=== PATIENT | male | born 1950 | race Hispanic/Latino ===

== ENCOUNTER 2022-08-20 07:15 | Day surgery (SDC) | payer OTHER, MEDICARE ==
[2022-08-14 12:54] VITALS: BP 111/59
[2022-08-14 13:06] LABS: BASOPHILS % (AUTO) 0.5 % (0.0-5.0); EOSINOPHILS % (AUTO) 2.7 % (0.0-8.0); HEMATOCRIT 36.7 % (42-54); MEAN CORPUSCULAR HEMOGLOBIN 23.8 pg (27.0-33.0); MEAN CORPUSCULAR VOLUME 79.4 fL (79-99); MONOCYTES % (AUTO) 6.4 % (3.0-13.0); PLATELET COUNT (AUTO) 233 K/uL (130-400); RED BLOOD CELL COUNT(AUTO) 4.62 MIL/uL (4.50-6.20); RED CELL DISTRIBUTION WIDTH 16.5 % (11.0-15.5); WHITE BLOOD COUNT (AUTO) 10.6 K/uL (4.8-10.8)
[2022-08-14 13:18] LABS: INR 1.08 (0.85-1.15); PROTHROMBIN TIME 11.7 SEC (9.6-11.6)
[2022-08-14 13:19] LABS: PARTIAL THROMBOPLASTIN TIME 28.9 SEC (26.3-35.5)
[2022-08-14 13:20] LABS: CREATININE 0.7 mg/dL (0.5-1.5); POTASSIUM 3.6 mmol/L (3.5-5.1)
[2022-08-14 13:59] LABS: APPEARANCE,URINE CLOUDY (CLEAR); BILIRUBIN,URINE NEGATIVE (NEGATIVE); COLOR,URINE LIGHT-YELLOW (YELLOW); GLUCOSE, URINE (UA) NEGATIVE (NEGATIVE); KETONES,URINE NEGATIVE (NEGATIVE); LEUKOCYTE ESTERASE ,URINE 500 Leu/uL (NEGATIVE); NITRATE,URINE NEGATIVE (NEGATIVE); PROTEIN,URINE 50 mg/dL (NEGATIVE); UROBILINOGEN,URINE 0.2 mg/dL (0.2-1.0)
[2022-08-14 14:10] LABS: BACTERIA,URINE FEW /HPF (None Seen); CALCIUM OXALATE CRYSTALS,UR RARE /LPF (None Seen); MUCUS,URINE RARE LPF (None Seen); WBC,URINE >100 /HPF (0-1); YEAST,URINE BUDDING MANY /HPF (None Seen)
[~2022-08-20] VITALS: Ht 182.9 cm; Wt 65.8 kg
[2022-08-20] VITALS (18 sets, daily range): BP systolic 94–116; BP diastolic 50–69
[~2022-08-20 07:15] MED LIST: ATORVASTATIN PO; ENAL-87 PO; GABA300C PO; INSLAN SQ; METF-446 PO
[2022-08-20] MEDS ORDERED: 0.9%NACL 1000ML 1,000 ML IV ONE (07:54)
[2022-08-20] MEDS: CEFAZOLIN SODIUM 2 GM VIAL ONE ×2 (08:03→09:37)
[2022-08-20] MEDS ORDERED: BUPIVACAINE/PF 0.25% 10ML VIAL IJ ONE (09:33)
[2022-08-20] MEDS ORDERED: ROCURONIUM 10MG/1ML SYR 10 MG/ML ML ONE (09:40)
[2022-08-20] MEDS ORDERED: PROPOFOL 10 MG/ML 20ML VIAL IV ONE (09:40)
[2022-08-20] MEDS ORDERED: BACITRACIN 28.4 GM OINT TP ONE (09:58)
[2022-08-20] MEDS ORDERED: ALBUMIN (HUMAN) 5% 250 ML IV ONE (10:17)
[2022-08-20] MEDS ORDERED: GLYCOPYRROLATE 1 MG/5 ML SYRINGE ONE (10:21)
[2022-08-20] MEDS ORDERED: NEOSTIGMINE 5MG/5ML SYR IV ONE (10:24)
== END 2022-08-20 12:28 | disposition home or self-care (01) ==
LOC: DAH 07:15
PROVIDERS: ATTEND Urology
DX: N47.1 Phimosis (principal); Z20.822 Contact with and (suspected) exposure to COVID-19; R33.8 Other retention of urine; E11.9 Type 2 diabetes mellitus without complications; Z86.73 Personal history of transient ischemic attack (TIA), and cerebral infarction without residual deficits; Z79.01 Long term (current) use of anticoagulants; Z79.899 Other long term (current) drug therapy
CPT/HCPCS: 80048; 85025; 85610; 85730; 87077; 87088; 87186; 87426; 81001; 36415; 71045; 93005; 54161; 82948 ×2; A4663; A4606; P9045; J3490 ×2; J2710; J7030; J2704; J0690; A4215; A4223; A4222; A4221; A4600

== ENCOUNTER 2023-09-01 11:47 | Emergency (ER) | payer OTHER, MEDICARE ==
[~2023-09-01] VITALS: Ht 170.2 cm; Wt 68.0 kg
[~2023-09-01 11:47] MED LIST changes: +AEC81 PO; +ATOR40TA71 PO; -ATORVASTATIN PO; -INSLAN SQ; +LACT PO
[2023-09-01 15:50] VITALS: BP 122/74; PULSE 78; RESP 18; O2SAT 98
== END 2023-09-01 15:51 ==
LOC: EDH 11:47
DX: K94.23 Gastrostomy malfunction (principal); E11.9 Type 2 diabetes mellitus without complications; E78.00 Pure hypercholesterolemia, unspecified; I10 Essential (primary) hypertension; K21.9 Gastro-esophageal reflux disease without esophagitis; Z79.82 Long term (current) use of aspirin; Z79.84 Long term (current) use of oral hypoglycemic drugs; Z79.899 Other long term (current) drug therapy; Z86.73 Personal history of transient ischemic attack (TIA), and cerebral infarction without residual deficits
CPT/HCPCS: 99281

== ENCOUNTER → 2024-01-04 | Outpatient (CLI) | payer OTHER, MEDICARE ==
[~2024-01-04] MED LIST changes: -AEC81 PO; -ENAL-87 PO; +FERR325T29 PO; +INSU3INS3 SQ; +LINA290C PO
== END | disposition home or self-care (01) ==
LOC: RAH 13:14
PROVIDERS: ATTEND Internal Medicine Gastroenterology
DX: R13.11 Dysphagia, oral phase (principal); R63.30 Feeding difficulties, unspecified
CPT/HCPCS: 74230; 92611

== ENCOUNTER 2024-04-11 07:49 | Day surgery (SDC) | payer OTHER, MEDICARE ==
[~2024-04-11] VITALS: Ht 182.9 cm; Wt 68.0 kg
[2024-04-11] VITALS (12 sets, daily range): BP systolic 109–128; BP diastolic 57–81; PULSE 61–86; RESP 15–18; TEMP 96.6–97.4
[2024-04-11] MEDS ORDERED: METF-446 PO (09:59)
[2024-04-11] MEDS: 0.9%NACL 1000ML 1,000 ML IV ONE (10:04)
[2024-04-11] MEDS ORDERED: proPOFol 10 MG/ML 20ML VIAL IV ONE (12:36)
== END 2024-04-11 14:13 | disposition home or self-care (01) ==
LOC: DAH 07:49 → ENDO 07:49
PROVIDERS: ATTEND Internal Medicine Gastroenterology
DX: K94.23 Gastrostomy malfunction (principal); K31.89 Other diseases of stomach and duodenum; R13.11 Dysphagia, oral phase; I10 Essential (primary) hypertension; E78.5 Hyperlipidemia, unspecified; K59.04 Chronic idiopathic constipation; E11.9 Type 2 diabetes mellitus without complications; Z86.73 Personal history of transient ischemic attack (TIA), and cerebral infarction without residual deficits; Z79.84 Long term (current) use of oral hypoglycemic drugs; Z79.899 Other long term (current) drug therapy
CPT/HCPCS: 43245; 43239; 82948 ×2; 43246; J7030; J2704; A4620; A4215; A4657; J3490